=== PATIENT | female | born 1940 | race Caucasian/White ===

== ENCOUNTER 2017-08-28 17:18 | Inpatient (IN) | payer MEDICARE, OTHER ==
[~2017-08-28] VITALS: Ht 157.5 cm; Wt 49.9 kg
[~2017-08-28 17:18] MED LIST: NITROFURANTOIN/NITROFURAN MAC 100 MG CAPSULE PO ONE
--- NOTE | 2017-08-28 17:20 | NUR ---
74 YO FEMALE BB SELF. PATIENT IS ALERT AND ORIENTED X 1. PATIENT CALLED 911, TOLD DISPATCH THAT SHE WANTS TO HURT HERSELF. PATIENT ASSISTED TO ER BED, SKIN WARM AND DRY, RESP EVEN AND UNLABORED. AWAITING ORDERS FROM PROVIDER, WILL CONTINUE TO MONITOR
--- NOTE | 2017-08-28 17:25 | NUR ---
PATIENT DENIES PLAN FOR SI AT THIS TIME, STATES IF SHE GOES HOME SHE WILL HURT HERSELF
--- NOTE | 2017-08-28 17:31 | NUR ---
CALLED FINANCIAL SERVICES REPRESENTATIVE SAMIRA MILES @ [phone]. UNABLE TO REACH. LEFT VOICEMAIL.
--- NOTE | 2017-08-28 17:35 | NUR ---
ETA OF 60-90 MIN FOR SAMIRA
[2017-08-28 17:53] LABS: BASOPHILS # (AUTO) 0.2 /CMM (0.0-0.2); BASOPHILS % (AUTO) 1.9 % (0.0-2.0); EOSINOPHILS % (AUTO) 0.2 % (0.0-6.0); HEMATOCRIT 49 % (33-45); HEMOGLOBIN 16.6 g/dL (11.5-14.8); LYMPHOCYTES # (AUTO) 2.1 /CMM (0.8-4.8); LYMPHOCYTES % (AUTO) 24.1 % (20.0-44.0); MEAN CORPUSCULAR HEMOGLOBIN 31 PG (26.0-33.0); MEAN CORPUSCULAR HGB CONC 34 g/dl (31.0-36.0); MEAN CORPUSCULAR VOLUME 91 fL (82-100); MONOCYTES # (AUTO) 0.3 /CMM (0.1-1.30); MONOCYTES % (AUTO) 3.4 % (2.0-12.0); NEUTROPHILS % (AUTO) 70.4 % (43.0-81.0); PLATELET COUNT (AUTO) 312 /CMM (150-450); RDW COEFFICIENT OF VARIATION 14.8 (11.5-15.0); RED BLOOD CELL COUNT(AUTO) 5.39 MIL/uL (4.0-5.2); WHITE BLOOD COUNT (AUTO) 8.6 K/uL (4.3-11.0)
[2017-08-28] MEDS ORDERED: ALPR1TAB2 PO (17:58)
[2017-08-28] MEDS ORDERED: TRAM50TA2 PO (17:58)
[2017-08-28] MEDS ORDERED: ATEN100T PO (17:58)
[2017-08-28] MEDS ORDERED: TRAZ-147 PO (17:58)
[2017-08-28] MEDS ORDERED: CITA10TA9 PO (17:58)
[2017-08-28 18:10] LABS: CALCIUM, SERUM 9.5 mg/dL (8.5-10.1); CARBON DIOXIDE 18 mmol/L (21-32); CHLORIDE 105 mmol/L (98-107); CREATININE 0.7 mg/dL (0.6-1.3); GLUCOSE 80 mg/dL (74-106); POTASSIUM 4.1 mmol/L (3.5-5.1); SODIUM SERUM 144 mmol/L (136-145); UREA NITROGEN, BLOOD 15 mg/dL (7-18)
[2017-08-28 18:17] LABS: ALANINE AMINOTRANSFERASE 30 U/L (12-78); ALCOHOL, BLOOD 136 mg/dL (0-0); ALKALINE PHOSPHATASE 106 U/L (46-116); ASPARTATE AMINOTRANSFERASE 26 U/L (15-37); BILIRUBIN,DIRECT 0.1 mg/dL (0.0-0.2); BILIRUBIN,TOTAL 0.2 mg/dL (0.2-1.0); SALICYLATE 3.6 mg/dL (2.8-20.0); TOTAL PROTEIN, SERUM 9.3 g/dL (6.4-8.2)
[2017-08-28 18:19] LABS: ACETAMINOPHEN 0 ug/ml (10-30)
[2017-08-28 20:00] LABS: APPEARANCE,URINE Slightly Cloudy (CLEAR); BILIRUBIN,URINE Negative (NEGATIVE); BLOOD, URINE Moderate Ery/uL (NEGATIVE); COLOR,URINE Yellow (YELLOW); KETONES,URINE 15 (NEGATIVE); LEUKOCYTE ESTERASE ,URINE Negative (NEGATIVE); NITRITE, URINE Positive (NEGATIVE); PROTEIN,URINE >=300 mg/dl (NEGATIVE); UGLUCOSE Negative (NEGATIVE); UROBILINOGEN,URINE 0.2 EU/dL (0.2)
[2017-08-28 20:12] LABS: BACTERIA,URINE 1+ /HPF (None Seen); SQUAMOUS EPITHELIAL CELL,UR Many /HPF (None Seen); WBC,URINE NONE SEEN /HPF (0-3)
[2017-08-28 21:15] VITALS: BP 151/84
--- NOTE | 2017-08-28 21:15 | NUR ---
GPS RN NOTES: ADMITTED FROM ER, 76-Y/O, FEMALE, INITIALLY CAME FROM HOME, PATIENT ADMITTED ON 5150 HOLD FOR DTS. PER HOLD PATIENT STATED "I DON'T HAVE A REASON TO LIVE" I AM TAKING UP SPACE THAT OTHER PEOPLE COULD USE. I'VE TRIED TO KILL MYSELF BY OVERDOSING ON PILLS AND IT DIDN'T WORK. PT STATED IF I HAD A GUN, I WOULD USE IT TO KILL MYSELF. UPON FACE TO FACE ASSESSMENT, PATIENT IS ALERT, ORIENTED X3, APPEARS TO BE DISHEVELED, UNKEMPT, PREOCCUPIED TO HER THOUGHTS. SHOWS NO S/SX OF DISTRESS, RESPIRATION EVEN, BREATHING PATTERN NON-LABORED, DENIES ANY PAIN/DISCOMFORT. PATIENT RESTING COMFORTABLY IN BED, NO APPARENT DISTRESS NOTED. BELONGINGS INVENTORIED AND CHECKED FOR CONTRABAND. REVIEWED PATIENT'S RIGHTS AND SHE VERBALIZED UNDERSTANDING. PATIENT IS UNDER THE PSYCHIATRIC CARE OF DR. FRENCH, ORDERS OBTAINED, AND UNDER THE MEDICAL CARE OF BONDING SUPERVISOR ANDRES DAVALOS NOTIFIED OF PT'S ADMISSION. REFUSED SKIN ASSESSMENT. BED LOCKED AND PLACED ON LOWEST POSITION. FALL PRECAUTIONS OBSERVED. ALL NEEDS ATTENDED AND ANTICIPATED. WILL CONTINUE TO MONITOR [id number] FOR SAFETY AND BEHAVIOR.
[2017-08-28] MEDS ORDERED: MAGNESIUM HYDROXIDE 30 ML UDC PO PRN (22:00)
[2017-08-28] MEDS ORDERED: MAG HYDROX/AL HYDROX/SIMETH 30 ML UDC PO PRN (22:00)
[2017-08-28] MEDS ORDERED: ACETAMINOPHEN 325 MG TABLET PO PRN (22:00)
[2017-08-29] MEDS ORDERED: TRAMADOL HCL 50 MG TABLET PO PRN
--- NOTE | 2017-08-29 00:03 | NUR ---
GPS RN NOTES: PATIENT C/O BILATERAL LOWER LEG PAIN. ON A SCALE OF 0/10 AND 10 IS THE WORST PAIN IMAGINABLE. PATIENT RATES 7/10. ADMINISTERED ULTRAM 50MG PO ORDERED. WILL CONTINUE TO MONITOR FOR PAIN. PATIENT REQUESTED TYLENOL 650MG ORDERED, BUT SHE REFUSED TO TAKE IT AND SHE PREFERS ULTRAM STRONGER PAIN MEDICATION. WILL CONTINUE TO MONITOR AND ASSESS FOR PAIN.
--- NOTE | 2017-08-29 00:05 | NUR ---
GPS RN NOTES: PATIENT WAS SEEN AND EXAMINED BY JENIFER DAVALOS WITH NO NEW ORDERS GIVEN.
[2017-08-29] MEDS: TEMAZEPAM 7.5 MG CAPSULE PO PRN ×2 (00:53→22:49)
[2017-08-29] MEDS ORDERED: NITROFURANTOIN/NITROFURAN MAC 100 MG CAPSULE PO ONE (01:00)
--- NOTE | 2017-08-29 06:12 | NUR ---
GPS RN NOTES: PATIENT DOES NOT WANT TO NOTIFY NEXT OF KIN OR OTHER PERSON OF HER ADMISSION. WILL ENDORSE TO THE NEXT SHIFT ACCORDINGLY.
[2017-08-29 08:00] VITALS: BP 151/97
[2017-08-29] MEDS: NITROFURANTOIN/NITROFURAN MAC 100 MG CAPSULE PO SCH ×2 (08:33→21:31)
[2017-08-29] MEDS: TRAMADOL HCL 50 MG TABLET PO PRN ×3 (08:34→21:32)
--- NOTE | 2017-08-29 09:36 | NUR ---
GPS RN NOTES: PATIENT C/O LEFT SIDE PAIN . ON A SCALE OF 8/10 ADMINISTERED ULTRAM 50MG PO ORDERED. WILL CONTINUE TO MONITOR FOR PAIN.
[2017-08-29 16:00] VITALS: BP 159/75
--- NOTE | 2017-08-29 19:30 | NUR ---
GPS RN NOTE, RECEIVED PATIENT AWAKE AND IN BED, HAS A COMPLAINT OF CHRONIC RIGHT ELBOW AND RIGHT KNEE PAIN AT 8 OUT 10 ON THE PAIN SCALE. PATIENT IS TAKING ORAL PAIN MEDICATION FOR THIS PAIN. PATIENT IS DISPLAYING NO S/S OF APPARENT DISTRESS AT THIS TIME. PATIENT BREATHING IS UNLABORED WITH EQUAL RISE AND FALL OF THE CHEST. PATIENT IS ALERT AND ORIENTED X 3 ON ROOM AIR WITH A SPO2 OF 94%. PATIENT IS MEDICATION COMPLIANT, ANXIOUS, NEEDY, COOPERATIVE, AND NEEDS REORIENTATION. PATIENT DENIES SUICIDE IDEATIONS AND HOMICIDAL IDEATIONS AT THIS TIME. PATIENT ASSISTED WITH TURNING AND REPOSITIONING Q2HR AND PRN FOR COMFORT AND CIRCULATION. PATIENT HAS NO NEEDS AT THIS TIME. PATIENT EDUCATED ON THE USE OF THE CALL LOPEZ. PATIENT SIDE RAILS ARE UP X 2, BED IS LOCKED AND LOW, AND I WILL CONTINUE TO MONITOR THIS PATIENT Q 15 MIN WITH THE HELP OF STAFF.
[2017-08-29 19:55] VITALS: BP 210/103
[2017-08-29 21:00] VITALS: BP 197/100
--- NOTE | 2017-08-29 21:00 | NUR ---
GPS RN NOTE, PATIENT VITAL SIGNS ARE FOLLOWS B/P 197/100, TEMP 98.7, RESPIRATIONS 19, PULSE 77, SPO2 96%. PAGED Bin1 ATE AND LEFT A M[facility]AGE TO [facility] TO ADDR[facility] B/P. WILL CONTINUE TO MONITOR THIS PATIENT.
[2017-08-29] MEDS: TRAZODONE 50 MG TABLET PO SCH (21:32)
--- NOTE | 2017-08-29 21:32 | NUR ---
GPS RN NOTE, PATIENT HAS A COMPLAINT OF CHRONIC RIGHT ELBOW AND KNEE PAIN AT 8 OUT 10 ON THE PAIN SCALE AND IS REQUESTING ULTRAM AT THIS TIME. PATIENT VITAL SIGNS ARE STABLE BUT B/P ELEVATED. GAVE ULTRAM 50MG PO Q4HR PRN ORDERED. WILL REASSESS PAIN AND I WILL CONTINUE TO MONITOR THIS PATIENT.
--- NOTE | 2017-08-29 22:49 | NUR ---
GPS RN NOTE, PATIENT HAS A COMPLAINT OF NOT BEING ABLE TO SLEEP AND IS REQUESTING RESTORIL AT THIS TIME. PATIENT VITAL SIGNS ARE STABLE BUT HAS AND ELEVATED B/P THAT I AM WAITING FOR ORDERS FROM MD. GAVE RESTORIL 15MG PO HS ORDERED. WILL REASSESS FOR INSOMNIA AND I WILL CONTINUE TO MONITOR THIS PATIENT.
--- NOTE | 2017-08-29 23:35 | NUR ---
GPS RN NOTE, PATIENT VITAL SIGNS ARE FOLLOWS B/P 168/92, TEMP 98.5, RESPIRATIONS 19, PULSE 70, SPO2 95%. PAGED [facility] AND INFORMED ANDRES DAVALSO OF MY FINDINGS. ANDRES DAVALOS ORDERED TO GIVE ATENOLOL 100 MG PO ONCE AND TO GIVE A NICOTINE PATCH 14MG TD Q24HR STARTING AT 0900. ALL ORDERS NOTED AND CARRIED OUT WILL CONTINUE TO MONITOR THIS PATIENT.
[2017-08-30] MEDS ORDERED: ATENOLOL 50 MG TABLET PO ONE
[2017-08-30 08:00] VITALS: BP 159/77
[2017-08-30] MEDS: CITALOPRAM HYDROBROMIDE 10 MG TABLET PO SCH (09:00)
[2017-08-30] MEDS: NITROFURANTOIN/NITROFURAN MAC 100 MG CAPSULE PO SCH ×2 (09:29→21:11)
[2017-08-30] MEDS: ATENOLOL 50 MG TABLET PO SCH ×2 (09:30→17:00)
[2017-08-30] MEDS: NICOTINE PATCH (14MG) 14 MG PATCH.TD24 TD SCH (09:31)
[2017-08-30] MEDS: TRAMADOL HCL 50 MG TABLET PO PRN (09:48)
--- NOTE | 2017-08-30 14:34 | NUR ---
UR Review: JOSE faxed initial clinicals (face sheet, 5150 hold, medical H&P, P&P, and medication list) to [facility], fax # ; [phone] SARA EXT [phone]. JOSE will follow up to ensure fax was received.
[2017-08-30 16:00] VITALS: BP 165/68
[2017-08-30 20:49] VITALS: BP 183/78
[2017-08-30] MEDS: TRAZODONE 50 MG TABLET PO SCH (21:11)
[2017-08-31 08:00] VITALS: BP 100/60
[2017-08-31] MEDS: NICOTINE PATCH (14MG) 14 MG PATCH.TD24 TD SCH (08:45)
[2017-08-31] MEDS: CITALOPRAM HYDROBROMIDE 10 MG TABLET PO SCH (08:46)
[2017-08-31] MEDS: NITROFURANTOIN/NITROFURAN MAC 100 MG CAPSULE PO SCH ×2 (08:46→20:22)
[2017-08-31] MEDS: ATENOLOL 50 MG TABLET PO SCH ×2 (08:46→16:15)
[2017-08-31] MEDS: TRAMADOL HCL 50 MG TABLET PO PRN ×2 (09:16→16:24)
[2017-08-31 16:00] VITALS: BP 142/72
--- NOTE | 2017-08-31 16:17 | NUR ---
UR Review: JOSE received a voicemail message from Mirella Trade Show Specialist from [facility] ext. [phone] requesting for a callback to provide information about pts discharge plan. JOSE contacted Trade Show Specialist however was unable to speak to her. JOSE left a detailed message asking to confirm whether or not pt had been approved. JOSE will follow up with Trade Show Specialist.
--- NOTE | 2017-08-31 16:32 | NUR ---
Initial Discharge Plan: Pt resides at [address] [place] [address]. [address] [place] [address] by herself; and has no telephone #. Pt would like to return home once she is ready to discharge. SW will continue to revisit placement options and identify a support system during her duration at the hospital. SW will follow up. SW will help form a safe and proper discharge.
[2017-08-31 19:56] VITALS: BP 160/67
[2017-08-31] MEDS: TRAZODONE 50 MG TABLET PO SCH (21:14)
[2017-09-01 08:00] VITALS: BP 150/70
[2017-09-01] MEDS: NITROFURANTOIN/NITROFURAN MAC 100 MG CAPSULE PO SCH ×2 (08:10→20:10)
[2017-09-01] MEDS: NICOTINE PATCH (14MG) 14 MG PATCH.TD24 TD SCH (08:11)
[2017-09-01] MEDS: ATENOLOL 50 MG TABLET PO SCH ×2 (08:11→19:04)
[2017-09-01] MEDS: CITALOPRAM HYDROBROMIDE 10 MG TABLET PO SCH (08:11)
[2017-09-01] MEDS: TRAMADOL HCL 50 MG TABLET PO PRN ×2 (08:21→14:01)
--- NOTE | 2017-09-01 08:21 | NUR ---
GPS/RN PATIENT REPORTS /10 BILATERAL KNEE PAIN, ADMINISTERED ULTRAM 50 MG, WILL CONTINUE TO MONITOR.
--- NOTE | 2017-09-01 14:05 | NUR ---
GPS/RN PATIENT REPORTS BILATERAL KNEE PAIN, ADMINISTERED ULTRAM 50 MG PER PATIENT REQUEST. WILL CONTINUE TO MONITOR.
[2017-09-01 16:00] VITALS: BP 137/83
[2017-09-01 20:00] VITALS: BP 158/72
[2017-09-01] MEDS: TRAZODONE 50 MG TABLET PO SCH (21:22)
[2017-09-02] MEDS: clonazePAM 0.5 MG TABLET PO PRN ×2 (03:24→10:16)
--- NOTE | 2017-09-02 03:29 | NUR ---
PATIENT WOKE UO AGITATED, SAYING THAT SHE CAN'T SLEEP, CLONAZEPAM 0.5 MG TAB 1 PO GIVEN.
[2017-09-02 07:15] LABS: BASOPHILS % (AUTO) 0.4 % (0.0-2.0); EOSINOPHILS # (AUTO) 0.1 /CMM (0.0-0.7); HEMATOCRIT 42 % (33-45); HEMOGLOBIN 14.1 g/dL (11.5-14.8); LYMPHOCYTES # (AUTO) 2.3 /CMM (0.8-4.8); LYMPHOCYTES % (AUTO) 30.4 % (20.0-44.0); MEAN CORPUSCULAR HEMOGLOBIN 31 PG (26.0-33.0); MEAN CORPUSCULAR HGB CONC 34 g/dl (31.0-36.0); MEAN CORPUSCULAR VOLUME 92 fL (82-100); MONOCYTES # (AUTO) 0.6 /CMM (0.1-1.30); MONOCYTES % (AUTO) 8.2 % (2.0-12.0); NEUTROPHILS # (AUTO) 4.5 /CMM (1.8-8.9); PLATELET COUNT (AUTO) 290 /CMM (150-450); RDW COEFFICIENT OF VARIATION 15.1 (11.5-15.0); RED BLOOD CELL COUNT(AUTO) 4.53 MIL/uL (4.0-5.2); WHITE BLOOD COUNT (AUTO) 7.4 K/uL (4.3-11.0)
[2017-09-02 07:16] LABS: CALCIUM, SERUM 9.2 mg/dL (8.5-10.1); CARBON DIOXIDE 25 mmol/L (21-32); CHLORIDE 102 mmol/L (98-107); CREATININE 0.7 mg/dL (0.6-1.3); GLUCOSE 112 mg/dL (74-106); POTASSIUM 4.3 mmol/L (3.5-5.1); SODIUM SERUM 138 mmol/L (136-145); UREA NITROGEN, BLOOD 19 mg/dL (7-18)
[2017-09-02 08:31] VITALS: BP 149/78
[2017-09-02] MEDS: CITALOPRAM HYDROBROMIDE 10 MG TABLET PO SCH (09:20)
[2017-09-02] MEDS: NICOTINE PATCH (14MG) 14 MG PATCH.TD24 TD SCH (09:20)
[2017-09-02] MEDS: NITROFURANTOIN/NITROFURAN MAC 100 MG CAPSULE PO SCH ×2 (09:20→21:12)
[2017-09-02] MEDS: TRAMADOL HCL 50 MG TABLET PO PRN (09:20)
[2017-09-02] MEDS: ATENOLOL 50 MG TABLET PO SCH ×2 (09:21→17:12)
--- NOTE | 2017-09-02 10:54 | NUR ---
Discharge Planning: JOSE contacted Mirella, Principal Planner from [facility] ext. [phone] to provide them with a daily report. JOSE was informed that Mirella was not in today, however Nanci assisted this writing SW. JOSE informed Nanci that updated progress notes were not up as of yet, however as soon as they are made available JOSE will fax updated clinicals. JOSE will follow up to ensure pt receives adequate care.
--- NOTE | 2017-09-02 15:30 | NUR ---
UR Review: JOSE faxed updated clinicals (medical H&P, P&P, and medication list) to [facility], fax # ; [phone]; pascual Vu. JOSE will follow up to ensure fax was received.
[2017-09-02 16:00] VITALS: BP 137/75
[2017-09-02 20:00] VITALS: BP 131/75
[2017-09-02] MEDS: TRAZODONE 50 MG TABLET PO SCH (21:12)
[2017-09-02] MEDS: TEMAZEPAM 7.5 MG CAPSULE PO PRN (22:39)
[2017-09-03 08:00] VITALS: BP 148/75
[2017-09-03] MEDS: NITROFURANTOIN/NITROFURAN MAC 100 MG CAPSULE PO SCH ×2 (08:59→21:32)
[2017-09-03] MEDS: ATENOLOL 50 MG TABLET PO SCH ×2 (08:59→16:52)
[2017-09-03] MEDS: CITALOPRAM HYDROBROMIDE 10 MG TABLET PO SCH (08:59)
[2017-09-03] MEDS: NICOTINE PATCH (14MG) 14 MG PATCH.TD24 TD SCH (08:59)
[2017-09-03] MEDS: TRAMADOL HCL 50 MG TABLET PO PRN ×2 (09:06→14:10)
--- NOTE | 2017-09-03 14:10 | NUR ---
RN-CO: PATIENT IS COMPLAINING OF GEN BODY PAIN AND ELBOW PAIN TRAMADOL TAB GIVEN FOR PAIN 01/03.
[2017-09-03 16:00] VITALS: BP 142/69
[2017-09-03 20:00] VITALS: BP 140/73
[2017-09-03] MEDS: TRAZODONE 50 MG TABLET PO SCH (21:32)
[2017-09-03] MEDS: TEMAZEPAM 7.5 MG CAPSULE PO PRN (22:22)
--- NOTE | 2017-09-04 01:15 | NUR ---
Pt has been withdrawn with flat affect but pleasant & compliant on approach.
[2017-09-04] MEDS: TRAMADOL HCL 50 MG TABLET PO PRN (07:06)
[2017-09-04] MEDS: NITROFURANTOIN/NITROFURAN MAC 100 MG CAPSULE PO SCH ×2 (08:27→21:32)
[2017-09-04] MEDS: NICOTINE PATCH (14MG) 14 MG PATCH.TD24 TD SCH (08:27)
[2017-09-04] MEDS: CITALOPRAM HYDROBROMIDE 10 MG TABLET PO SCH (08:27)
[2017-09-04] MEDS: ATENOLOL 50 MG TABLET PO SCH ×2 (08:28→16:45)
[2017-09-04 08:30] VITALS: BP 141/77
[2017-09-04] MEDS: clonazePAM 0.5 MG TABLET PO PRN (09:00)
--- NOTE | 2017-09-04 09:02 | NUR ---
NURSING NOTE PT STATING SHE IS FEELING VERY ANXIOUS AND REQUESTING XANAX, NO ORDER FOR XANAX IN AUG, PT WAS GIVEN KLONOPIN 0.5MG FOR ANXIETY PER PT REQUEST, VS STABLE, WILL CONTINUE TO MONITOR
[2017-09-04 16:11] VITALS: BP 151/69
[2017-09-04 19:54] VITALS: BP 140/77
[2017-09-04] MEDS: TRAZODONE 50 MG TABLET PO SCH (21:33)
[2017-09-04] MEDS: TEMAZEPAM 7.5 MG CAPSULE PO PRN (22:33)
[2017-09-05 08:00] VITALS: BP 145/72
[2017-09-05] MEDS: NITROFURANTOIN/NITROFURAN MAC 100 MG CAPSULE PO SCH (08:31)
[2017-09-05 08:32] VITALS: BP 145/72
[2017-09-05] MEDS: NICOTINE PATCH (14MG) 14 MG PATCH.TD24 TD SCH (08:32)
[2017-09-05] MEDS: CITALOPRAM HYDROBROMIDE 10 MG TABLET PO SCH (08:32)
[2017-09-05] MEDS: ATENOLOL 50 MG TABLET PO SCH (08:32)
--- NOTE | 2017-09-05 09:59 | NUR ---
UR Review: JOSE spoke with classification case manager Roseanne from [facility] ext. [phone]. JOSE informed Roseanne that patient is discharging today and requested a list of contracted home health agencies and after care for mental health services. Roseanne stated that their system is "down" right now and that she is unable to pull up any information for that. Roseanne stated that she will contact JOSE as soon as the system is running with the information for after-care.
--- NOTE | 2017-09-05 11:43 | NUR ---
Discharge Note: Patient will be discharged home to [address] [place] [address]. [address] [place] [address]. Patient does not have any family to notify. Per patient, family members live out of state and patient does not wish for them to be contacted. Patient states that she is in agreement with the plan and would like to return home. Upon discharge, patient is cooperative. Patient denies suicidal and homicidal ideation. Patient denies visual and auditory hallucinations. Patient has an appointment with her insulator tester, Dr. Ronald Jacob [address] [place] [address] [phone] on September 19 at 11am. SW was provided two referrals from [facility] [pillowcase folder Roseanne ext. [phone]]. Psychiatrist Dr. Butt [address] [facility] [address] [place], [place] / [phone]. SW left a voicemail requesting a follow up appointment. JOSE also called [facility] for therapeutic services [address] [facility] [address] [place] [address] / [phone]. JOSE was informed by Logan [facility]ee that patient has to be the one to schedule the appointment and that JOSE cannot do that on behalf of patient. JOSE provided these resources to the patient.
--- NOTE | 2017-09-05 15:00 | NUR ---
GPS/RN PATIENT CLEARED FOR DISCHARGE HOME BY DR FRENCH AND DR NAYLOR. MEDICATIONS RECONCILED BY BOTH DR'S, PRESCRIPTIONS CALLED INTO [facility]. PATIENT STATED THAT SHE DID NOT REQUIRE ATENOLOL PRESCRIPTION, STATED THAT SHE HAD AMPLE SUPPLY AT HOME. EXIT CARE, D/C PACKET, MEDICATIONS AND AFTERCARE PLAN EXPLAINED TO PATIENT, VERBALIZED UNDERSTANDING. PATIENT REFUSED SKIN ASSESSMENT X 3, EXPLAINED RISKS AND BENEFITS, BELONGINGS, MEDICATIONS AND VALUABLES RETURNED TO PATIENT AND BELONGING FORM SIGNED BY PATIENT. HOME HEALTH WAS ORDERED AND PER SHELLIE, PATIENT WAS ABLE TO TAKE WALKER FROM UNIT HOME WITH HER. PATIENT DENIES SI/HI/AH UPON DISCHARGE, PSYCHIATRIC TREATMENT PLANS MET. LEFT UNIT CALM, COOPERATIVE, NO DISTRESS NOTED WITH [facility] AT SIDE.
--- NOTE | 2017-09-06 09:28 | NUR ---
JOSE was informed by major case detective Roseanne from [facility] ext. [phone] that a request for home health services needs to be done through patient's medical group, [facility]. JOSE obtained the contact information for [facility], . JOSE called and spoke with Leslie. Leslie stated that JOSE needs to fax the order for home health to [place] [address] at fax # [phone]. JOSE faxed the referral packet.
== END 2017-09-05 14:10 | disposition home or self-care (01) | DRG 885 ==
LOC: EDBD 17:21 → ER 17:21 → GPS 20:50
PROVIDERS: ADMIT Psychiatry & Neurology Psychiatry; ATTEND Psychiatry & Neurology Psychiatry
DX: F33.2 Major depressive disorder, recurrent severe without psychotic features (principal); F29 Unspecified psychosis not due to a substance or known physiological condition; N39.0 Urinary tract infection, site not specified; R45.851 Suicidal ideations; I10 Essential (primary) hypertension; F10.20 Alcohol dependence, uncomplicated; Y90.6 Blood alcohol level of 120-199 mg/100 ml; Z88.8 Allergy status to other drugs, medicaments and biological substances; M17.11 Unilateral primary osteoarthritis, right knee; Z96.641 Presence of right artificial hip joint; G89.29 Other chronic pain; Z79.899 Other long term (current) drug therapy
CPT/HCPCS: 36415; 80048-TC; 80076-TC; 80305; 81000-TC; 85025-TC; 87081-TC; 87086-TC; A4606; G0480; Z7610

== ENCOUNTER 2018-02-12 20:51 | Inpatient (IN) | payer OTHER ==
[~2018-02-12] VITALS: Ht 160 cm; Wt 71.2 kg
[~2018-02-12 20:51] MED LIST changes: +ALPR1TAB2 PO; +ATEN100T PO; +CITA10TA9 PO; -NITROFURANTOIN/NITROFURAN MAC 100 MG CAPSULE PO ONE; +TRAM50TA2 PO; +TRAZ-214 PO
[2018-02-12] MEDS ORDERED: NADO40TA18 PO (21:38)
[2018-02-12] MEDS ORDERED: MAGNESIUM HYDROXIDE 30 ML UDC PO PRN (22:00)
[2018-02-12] MEDS ORDERED: MAG HYDROX/AL HYDROX/SIMETH 30 ML UDC PO PRN (22:00)
[2018-02-12 22:46] VITALS: BP 127/65
--- NOTE | 2018-02-12 23:09 | NUR ---
ADMISSION NOTES ADMITTED THIS 77 Y/O FEMALE PATIENT ADMIT FROM [facility], PT IS ON 5150 HOLD DTS , PER HOLD PT. STATED SHE WANTED TO HURT HERSELF, BEFORE BECOMING UNCOOPERTIVE UNRESPONSIVE . UPON FACE TO FACE ASSESSMENT PATIENT IS A&O 3X- UNCOOPERATIVE, DEPRESSED, FLAT AFFECT EASILY AGITATED, PT.IS POOR HISTORIAN, POOR INSIGHT ,POOR JUDGEMENT ,V/S WNL, NO ACUTE DISTRESS NOTED, , MD AWARE AND NOTIFIED OF THE ADMISSION, PT. REFUSED FULL BODY SKIN ASESSMENT PER PT. MY SKIN IS FINE, ENCOURAGED EXPLINED RISKS AND BENEFITS BUT STILL REFUSED ,PT. REFUSED SIGNS OF ADMISSION DOCUMENTS AND REFUSED ID PICTURES FOR THE CHART, ENCOURAGED PT. TO VERBALIZED ANY FEELING CONCERN TO STAFF, ORIENT TO UNIT POLICY, WILL CONTINUE TO MONITOR FOR Q15 SAFETY AND BEHAVIOR.
[2018-02-13] MEDS: TEMAZEPAM 7.5 MG CAPSULE PO PRN ×2 (00:19→23:14)
[2018-02-13 08:00] VITALS: BP 158/67
[2018-02-13] MEDS: NICOTINE PATCH (14MG) 14 MG PATCH.TD24 TD SCH (08:57)
[2018-02-13] MEDS: ATENOLOL 50 MG TABLET PO SCH ×2 (08:57→16:33)
[2018-02-13] MEDS ORDERED: NADOLOL 40 MG TABLET PO SCH ×2 (09:00)
[2018-02-13] MEDS: LORAZEPAM 0.5 MG TABLET PO PRN ×2 (09:23→19:55)
--- NOTE | 2018-02-13 09:23 | NUR ---
GPS/RN PATIENT IS ANXIOUS, RESTLESS AND AGITATED. ADMINISTERED ATIVAN 0.5 MG PER PATIENT REQUEST. WILL CONTINUE TO MONITOR.
--- NOTE | 2018-02-13 15:07 | NUR ---
Roseanne ([phone] ext [phone]) from [facility] called the SW and stated that the pt has been hospitalized many times before in the past year and suggested outpatient appointments for the aftercare plan.
[2018-02-13 16:00] VITALS: BP 185/89
--- NOTE | 2018-02-13 19:55 | NUR ---
GPS-RN PATIENT C/O FEELING ANXIOUS. ADMINISTERED ATIVAN 0.5MG PO ORDERED. WILL CONTINUE TO MONITOR [id number] CHECK FOR SAFETY AND BEHAVIOR.
[2018-02-13 20:51] VITALS: BP_SYST 142; BP_SYST 154; BP_DIAS 84; BP_DIAS 88
[2018-02-13] MEDS: TRAZODONE 50 MG TABLET PO SCH (21:34)
[2018-02-14] MEDS: LORAZEPAM 0.5 MG TABLET PO PRN ×3 (02:05→20:36)
--- NOTE | 2018-02-14 02:05 | NUR ---
GPS-RN PATIENT IS ANXIOUS, RESTLESS AND AGITATED. ADMINISTERED ATIVAN 0.5MG PO ORDERED. WILL CONTINUE TO MONITOR [id number] CHECK FOR SAFETY AND BEHAVIOR.
[2018-02-14 07:46] LABS: ALANINE AMINOTRANSFERASE 21 U/L (12-78); ALBUMIN 3.5 g/dL (3.4-5.0); ALKALINE PHOSPHATASE 91 U/L (46-116); ASPARTATE AMINOTRANSFERASE 23 U/L (15-37); BILIRUBIN,TOTAL 0.5 mg/dL (0.2-1.0); CALCIUM, SERUM 8.8 mg/dL (8.5-10.1); CARBON DIOXIDE 24 mmol/L (21-32); CHLORIDE 104 mmol/L (98-107); CHOLESTEROL 263 mg/dL (<200); CREATININE 0.8 mg/dL (0.6-1.3); GLUCOSE 115 mg/dL (74-106); HDL CHOLESTEROL 62 mg/dL (40-60); LDL 159 mg/dL (0-99); POTASSIUM 3.9 mmol/L (3.5-5.1); SODIUM SERUM 138 mmol/L (136-145); TOTAL PROTEIN, SERUM 7.5 g/dL (6.4-8.2); TRIGLYCERIDES 244 mg/dL (30-150); UREA NITROGEN, BLOOD 18 mg/dL (7-18)
[2018-02-14 07:48] LABS: BASOPHILS % (AUTO) 0.6 % (0.0-2.0); EOSINOPHILS % (AUTO) 1.1 % (0.0-6.0); HEMATOCRIT 46 % (33-45); HEMOGLOBIN 15.2 g/dL (11.5-14.8); LYMPHOCYTES # (AUTO) 1.7 /CMM (0.8-4.8); LYMPHOCYTES % (AUTO) 24.5 % (20.0-44.0); MEAN CORPUSCULAR HEMOGLOBIN 31 PG (26.0-33.0); MEAN CORPUSCULAR HGB CONC 33 g/dl (31.0-36.0); MEAN CORPUSCULAR VOLUME 95 fL (82-100); MONOCYTES # (AUTO) 0.6 /CMM (0.1-1.30); MONOCYTES % (AUTO) 9.3 % (2.0-12.0); NEUTROPHILS # (AUTO) 4.4 /CMM (1.8-8.9); NEUTROPHILS % (AUTO) 64.5 % (43.0-81.0); PLATELET COUNT (AUTO) 270 /CMM (150-450); RDW COEFFICIENT OF VARIATION 15.2 (11.5-15.0); RED BLOOD CELL COUNT(AUTO) 4.84 MIL/uL (4.0-5.2); WHITE BLOOD COUNT (AUTO) 6.8 K/uL (4.3-11.0)
[2018-02-14 08:00] VITALS: BP 140/88
[2018-02-14] MEDS: NICOTINE PATCH (14MG) 14 MG PATCH.TD24 TD SCH (09:41)
[2018-02-14] MEDS: CITALOPRAM HYDROBROMIDE 20 MG TABLET PO SCH (09:42)
[2018-02-14] MEDS: ATENOLOL 50 MG TABLET PO SCH ×2 (09:42→16:29)
[2018-02-14] MEDS: ACETAMINOPHEN 325 MG TABLET PO PRN (09:52)
[2018-02-14] MEDS: TRAMADOL HCL 50 MG TABLET PO PRN ×2 (10:10→21:21)
--- NOTE | 2018-02-14 14:48 | NUR ---
Initial Discharge Plan: Pt currently lives alone in an apartment located at [address] [place] [address]. Pt did not provide a phone number to be reached at. Per pt, she would like to return home as soon as possible. SW will work with the pt and the MD regarding appropriate discharge plans. SW will form a safe and proper discharge.
--- NOTE | 2018-02-14 14:49 | NUR ---
UR Note: JOSE faxed a clinical review to Gissel from [facility] to the fax number: [phone].
--- NOTE | 2018-02-14 14:49 | NUR ---
Roseanne ([phone] ext [phone]) from [facility] called the SW and stated that a clinical needed to be sent for the pt.
--- NOTE | 2018-02-14 14:50 | NUR ---
SW spoke to the pt about her wanting to switch psychiatrists. SW took the request that she had written and placed a copy in her chart and gave a copy to Chari Marie [facility] Hydrological Technical Officer.
--- NOTE | 2018-02-14 14:51 | NUR ---
Dr. Emma Laird spoke to the SW about how he is contracted with the pt's insurance and therefore he can be the only one to provide psychiatric services to her. He informed the SW that the insurance will set up home health and that she will be discharged by the end of the week.
[2018-02-14 16:00] VITALS: BP 161/85
--- NOTE | 2018-02-14 18:00 | NUR ---
ot eval done.ot. noted lump at rt. elbow,and lump behind rt. shoulder.tx recommended to rn to get an ortho consult.dr. small aware and requested rn call dr. thomas.dr. thomas stated after being called that he would examine pt. himself tomorrow and then contact ortho and give further orders.pt. med x1 with ativan and ultram.
--- NOTE | 2018-02-14 20:21 | NUR ---
GPS-RN PATIENT C/O GENERALIZED PAIN ON A PAIN SCALE OF 7/10. ADMINISTERED ULTRAM 50MG TAB PO ORDERED PER PATIENT'S REQUEST. WILL CONTINUE TO MONITOR.
[2018-02-14 20:25] VITALS: BP 166/94
--- NOTE | 2018-02-14 20:36 | NUR ---
GPS-RN PATIENT IS ANXIOUS, RESTLESS AND AGITATED. ADMINISTERED ATIVAN 0.5MG PO ORDERED. WILL CONTINUE TO MONITOR [id number] CHECK FOR SAFETY AND BEHAVIOR.
[2018-02-14 21:02] VITALS: BP 156/85
[2018-02-14] MEDS: TRAZODONE 50 MG TABLET PO SCH (21:05)
[2018-02-15] MEDS: TEMAZEPAM 7.5 MG CAPSULE PO PRN (00:54)
[2018-02-15] MEDS: TRAMADOL HCL 50 MG TABLET PO PRN ×2 (06:16→21:12)
--- NOTE | 2018-02-15 06:16 | NUR ---
GPS-RN PATIENT C/O RIGHT LOWER LEG ON A PAIN SCALE OF 7/10. ADMINISTERED ULTRAM 50MG TAB PO ORDERED PER PATIENT'S REQUEST. WILL CONTINUE TO MONITOR.
[2018-02-15] MEDS: ACETAMINOPHEN 325 MG TABLET PO PRN (07:04)
[2018-02-15 08:00] VITALS: BP 138/75
[2018-02-15] MEDS: ATENOLOL 50 MG TABLET PO SCH ×2 (10:00→16:32)
[2018-02-15] MEDS: NICOTINE PATCH (14MG) 14 MG PATCH.TD24 TD SCH (10:00)
[2018-02-15] MEDS: CITALOPRAM HYDROBROMIDE 20 MG TABLET PO SCH (10:01)
[2018-02-15 16:00] VITALS: BP 163/78
[2018-02-15] MEDS: LORAZEPAM 0.5 MG TABLET PO PRN (16:31)
--- NOTE | 2018-02-15 16:31 | NUR ---
NURSING NOTE PT STATING SHE'S FEELING ANXIOUS, REQUESTING ATIVAN TO HELP CALM HER DOWN, ATIVAN 0.5MG PO ADMINISTERED PER MD ORDER. WILL CONTINUE TO MONITOR FOR SAFETY AND BEHAVIOR.
[2018-02-15 20:12] VITALS: BP 164/77
[2018-02-15] MEDS: TRAZODONE 50 MG TABLET PO SCH (21:02)
[2018-02-16] MEDS: TEMAZEPAM 7.5 MG CAPSULE PO PRN ×2 (00:11→23:35)
[2018-02-16 08:00] VITALS: BP 142/65
[2018-02-16] MEDS: CITALOPRAM HYDROBROMIDE 20 MG TABLET PO SCH (08:30)
[2018-02-16] MEDS: NICOTINE PATCH (14MG) 14 MG PATCH.TD24 TD SCH (08:30)
[2018-02-16] MEDS: ATENOLOL 50 MG TABLET PO SCH ×3 (08:32→17:56)
[2018-02-16] MEDS: TRAMADOL HCL 50 MG TABLET PO PRN ×2 (09:12→21:35)
--- NOTE | 2018-02-16 09:12 | NUR ---
GPS/RN PATIENT C/O GENERALIZED PAIN 02/03. ADMINISTERED TRAMADOL 50 MG PER PATIENT REQUEST. WILL CONTINUE TO MONITOR.
--- NOTE | 2018-02-16 10:01 | NUR ---
GPS/RN HELD ATENOLOL 100 MG DUE TO DECREASED HR OF 52. BP 142/65, WILL CONTINUE TO MONITOR.
[2018-02-16] MEDS: LORAZEPAM 0.5 MG TABLET PO PRN (10:40)
--- NOTE | 2018-02-16 10:40 | NUR ---
GPS/RN PATIENT REPORTS BEING ANXIOUS AND AGITATED, ADMINISTERED ATIVAN 0.5 MG PER PATIENT REQUEST. WILL CONTINUE TO MONITOR.
--- NOTE | 2018-02-16 14:34 | NUR ---
SW explained to the pt that she cannot switch psychiatrists due to the contract that Dr. Laird has with her insurance and due to Dr. Garcia not wanting to take on more cases. Pt agreed to stay under the care of Dr. Laird.
--- NOTE | 2018-02-16 14:35 | NUR ---
UR Note: JOSE faxed a clinical review to Gissel from [facility] to the fax number: [phone].
--- NOTE | 2018-02-16 14:36 | NUR ---
JOSE called Rsoeanne ([phone] ext [phone]) from [facility] and informed her about the pt initially wanting to switch psychiatrists but how that situation was resolved with the one that she was assigned. JOSE then informed Roseanne that the pt is going to be discharged tomorrow back home and stated that she would fax over a home health order tomorrow.
[2018-02-16 16:00] VITALS: BP 155/63
--- NOTE | 2018-02-16 16:05 | NUR ---
JOSE called Roseanne ([phone] ext [phone]) from [facility] and asked for the aftercare appointments to which she said she would provide on the following day.
[2018-02-16 20:00] VITALS: BP 149/77
[2018-02-16 20:19] VITALS: BP 144/77
[2018-02-16] MEDS: TRAZODONE 50 MG TABLET PO SCH (21:35)
[2018-02-17 08:00] VITALS: BP 149/66
[2018-02-17 08:28] VITALS: BP 149/66
[2018-02-17] MEDS: NICOTINE PATCH (14MG) 14 MG PATCH.TD24 TD SCH (08:28)
[2018-02-17] MEDS: ATENOLOL 50 MG TABLET PO SCH (08:28)
[2018-02-17] MEDS: CITALOPRAM HYDROBROMIDE 20 MG TABLET PO SCH (08:29)
[2018-02-17] MEDS: TRAMADOL HCL 50 MG TABLET PO PRN (08:38)
[2018-02-17] MEDS: LORAZEPAM 0.5 MG TABLET PO PRN (08:38)
--- NOTE | 2018-02-17 08:46 | NUR ---
DR. IBRAHIM GAVE AN ORDER TO D/C HOLD AND D/C HOME AND TO FOLLOW UP WITH PSYCH AND MEDICAL DOCTORS.
--- NOTE | 2018-02-17 10:30 | NUR ---
gps certified medical biller: visit dr. thomas here and made aware re: d'c home today at noon with order for homeheath services. mariely (geriatric social worker) made aware and will make arrangement. pt made aware. pt stable for discharge. denies si/hi at this time. denies auditory/visual hallucinations. will continue to monitor. pt will go home via taxi per geriatric social worker.
--- NOTE | 2018-02-17 10:45 | NUR ---
gps cattle trader: notes discharged instructions with prescriptions given to pt and verbalized understanding. pt stable for discharge, denies si/hi at this time. denies auditory/visual hallucinations at this time.
--- NOTE | 2018-02-17 11:50 | NUR ---
gps director sterile processing: notes pt wants to go home after lunch, nephrology social worker made aware and will call taxi and will provide pt a voucher.
--- NOTE | 2018-02-17 12:35 | NUR ---
Pt. is for discharge via a taxi and left the unit via a wheel chair and wheeled by staff to the lobby. Pt. instructed on meds to continue at home and verbalizes understanding and advised to make a follow up to psych and medical doctors and agreed. Pt. left the unit without distress and on stable condition, BP 144/66, ID 63, temp 97.4, RR 18 and oxygen sat 97%.
--- NOTE | 2018-02-17 13:03 | NUR ---
Pt was discharged home to [address] [place] [address]. Pt was transported via taxi at around 12pm with a taxi voucher for $24. Home health will be ordered for the pt through her insurance because the SW faxed a home health order to her Roseanne ([phone] ext [phone]) from [facility]. Upon discharge, the pt appeared to be irritated but also content about being able to go home. Pt stated that she does not have any suicidal or homicidal ideation as well as visual or auditory hallucinations. Pt was provided with three substance use referrals as well as two smoking cessation referrals that are listed below. Pt will be under the care of Dr. Laird who [place] at [address] [facility] [address], [place] [address]; and who she has an appointment with at 2:30pm on 02/23/18. Pt will also be under the care of Dr. Rochelle Smith, who [place] at [address] [place] [address]; . Substance Use referrals: [facility] [address] [place] [address] Tel. [facility] [address] [place] Provider Mental Health Treatment Tele-dermatology HIV Services Telemedicine Services [place] [address] [place] [address] [facility] [address] [place] [address] Smoking cessation referrals: [facility] [employer] [place] [facility] 800-LUNGUSA [employer] [place] [facility] [phone]
--- NOTE | 2018-02-17 13:05 | NUR ---
UR Note: JOSE faxed a clinical review to Gissel from [facility] to the fax number: [phone].
--- NOTE | 2018-02-17 13:05 | NUR ---
UR Note: JOSE faxed a home health order to Gissel from [facility] to the fax number: [phone].
--- NOTE | 2018-02-17 13:05 | NUR ---
Roseanne ([phone] ext [phone]) from [facility] called the and provided her with the aftercare appointments.
--- NOTE | 2018-02-21 15:25 | NUR ---
Discharge Note: Pt was discharged home to [address] [place] [address]. Pt was transported via taxi at around 12pm with a taxi voucher for $24. Home health will be ordered for the pt through her insurance because the SW faxed a home health order to her Roseanne ([phone] ext [phone]) from [facility]. Upon discharge, the pt appeared to be irritated but also content about being able to go home. Pt stated that she does not have any suicidal or homicidal ideation as well as visual or auditory hallucinations. Pt was provided with three substance use referrals as well as two smoking cessation referrals that are listed below. Pt will be under the care of Dr. Laird who is located at [address] [place] [address]; and who she has an appointment with at 2:30pm on 02/23/18. Pt will also be under the care of Dr. Rochelle Smith, who is located at [address] [place] [id number]; .
== END 2018-02-17 12:35 | disposition home or self-care (01) | DRG 885 ==
LOC: GPS 21:05
PROVIDERS: ADMIT Psychiatry & Neurology Psychiatry; ATTEND Psychiatry & Neurology Psychiatry
PROC: 0P9 Upper Bones, Drainage (ICD-10-PCS; principal; 2018-02-15)
DX: F33.2 Major depressive disorder, recurrent severe without psychotic features (principal); F29 Unspecified psychosis not due to a substance or known physiological condition; I10 Essential (primary) hypertension; F17.200 Nicotine dependence, unspecified, uncomplicated; M19.90 Unspecified osteoarthritis, unspecified site; Z96.641 Presence of right artificial hip joint; R26.9 Unspecified abnormalities of gait and mobility; G89.29 Other chronic pain; D17.9 Benign lipomatous neoplasm, unspecified; M71.9 Bursopathy, unspecified; F10.20 Alcohol dependence, uncomplicated; Y90.9 Presence of alcohol in blood, level not specified
CPT/HCPCS: 36415; 80053-TC; 80061-TC; 85025-TC; 87081-TC